=== PATIENT | female | born 1985 | race Caucasian/White ===

== ENCOUNTER 2021-07-11 17:12 | Emergency (ER) | payer BC, OTHER ==
[2021-07-11] MEDS ORDERED: ONDANSETRON 4 MG/2 ML VIAL ONE (17:25)
[2021-07-11] MEDS ORDERED: MECLIZINE HCL 12.5 MG TAB ONE (17:27)
[2021-07-11 17:35] LABS: Absolute Lymphocytes (CBC) 1.6 K/uL (0.7-4.9); Hematocrit 39.1 % (36.0-45.0); Lymphocytes % 19.5 % (15.3-44.8); MPV 7.9 fL (7.6-11.3); RBC Red Blood Cell Count 4.95 M/uL (3.86-4.86)
--- NOTE | 2021-07-11 17:52 | RAD REPORT ---
EXAM DESCRIPTION: CT - Head Brain Wo Cont - 07/11/2021 5:33 pm CLINICAL HISTORY: DIZZINESS COMPARISON: No comparisons TECHNIQUE: All CT scans are performed using dose optimization technique as appropriate and may inclu de automated exposure control or mA/KV adjustment according to patient size. FINDINGS: No intracranial hemorrhage, hydrocephalus or extra-axial fluid collection.No areas of brai n edema or evidence of midline shift. The paranasal sinuses and mastoids are clear. The calvarium is intact. IMPRESSION: No acute intracranial abnormality.
[2021-07-11 17:54] LABS: Potassium 3.6 mmol/L (3.5-5.1)
[2021-07-11 18:33] LABS: Urine Blood 2+ (Negative); Urine Glucose Negative (Negative); Urine Protein Negative (Negative); Urine pH 5.5 (5.0-7.0)
--- NOTE | 2021-07-11 18:36 | RAD REPORT ---
EXAM DESCRIPTION: MRI - Brain Wo Cont - 07/11/2021 6:19 pm CLINICAL HISTORY: DIZZINESS COMPARISON: No comparisons TECHNIQUE: Sagittal T1-weighted images were obtained along with PD/heavily T2-weighted and T2-FLAIR images. Axial DWI and ADC mapping sequences were also obtained along with coronal heavily T2-weighted images were obtained. FINDINGS: No intracranial hemorrhage, mass or acute infarction. There is no edema or shift of midlin e structures. No extra-axial fluid collections. Signal voids are seen as a normal finding in the devonte r intracranial vessels. No significant white matter disease. Trace right mastoid fluid. IMPRESSION: No acute intracranial abnormality. No acute infarct. Small right mastoid effusion .
--- NOTE | 2021-07-11 19:12 | ER ---
Nurse's Notes [facility] Name: Kezia Myers Age: 35 yrs Sex: Female : 1985 Arrival Date: 07/11/2021 Time: 17:13 Bed 18 Private MD: Diagnosis: Other peripheral vertigo Presentation: 07/11 17:14 Chief complaint: Patient states: I was in a meeting today at work. I was sitting down ld1 and then I stood up, thought my leg was asleep. I was so dizzy I swayed into the wall. Pt states, "At this current moment I feel fine, no dizziness. But I feel very tired.". Coronavirus screen: At this time, the client does not indicate any symptoms associated with coronavirus-19. Ebola Screen: No symptoms or risks identified at this time. Initial Sepsis Screen: Does the patient meet any 2 criteria? No. Patient's initial sepsis screen is negative. Does the patient have a suspected source of infection? No. Patient's initial sepsis screen is negative. Risk Assessment: Do you want to hurt yourself or someone else? Patient reports no desire to harm self or others. Onset of symptoms was July 11, 2021. 17:14 Method Of Arrival: Wheelchair ld1 17:14 Acuity: ELLEN 3 ld1 Triage Assessment: 17:14 General: Appears in no apparent distress. comfortable, Behavior is calm, cooperative, ld1 appropriate for age. Pain: Denies pain. EENT: No signs and/or symptoms were reported regarding the EENT system. Neuro: Level of Consciousness is awake, alert, obeys commands, Oriented to person, place, time, situation, Appropriate for age. Neuro: Reports dizziness. Cardiovascular: Capillary refill < 3 seconds Patient's skin is warm and dry. Respiratory: Airway is patent Respiratory effort is even, unlabored, Respiratory pattern is regular, symmetrical. GI: Abdomen is flat, non-distended, Reports nausea. : No signs and/or symptoms were reported regarding the genitourinary system. Derm: No signs and/or symptoms reported regarding the dermatologic system. Musculoskeletal: No signs and/or symptoms reported regarding the musculoskeletal system. 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 - Social history:: Smoking status: Patient denies any tobacco usage or history of. Patient/guardian denies using alcohol. Screenin:21 Abuse screen: Denies threats or abuse. Denies injuries from another. Nutritional ld1 screening: No deficits noted. Tuberculosis screening: No symptoms or risk factors identified. Fall Risk None identified. Assessment: 17:19 Reassessment: See triage assessment. ld1 18:49 Neuro: Reports dizziness, since 4:30pm today, associated symptoms of nausea, and eo2 posterior neck pain 1/10; otherwise denies headache, V/D, CP, SOB. 19:24 Reassessment: Patient is alert, oriented x 3, equal unlabored respirations, skin kd3 warm/dry/pink. Patient denies pain at this time. General: Appears in no apparent distress. Vital Signs: 17:14 BP 127 / 76; Pulse 78; Resp 18; Temp 97.7(TE); Pulse Ox 99% on R/A; Height 5 ft. 6 in. ld1 (167.64 cm); Pain 0/10; 17:22 Weight 97.52 kg; Height 5 ft. 4 in. (162.56 cm); ld1 18:51 BP 101 / 60; Pulse 67; Resp 15; Pulse Ox 99% ; Pain 1/10; eo2 17:22 Body Mass Index 36.90 (97.52 kg, 162.56 cm) ld1 ED Course: 17:13 Patient arrived in ED. bd 17:14 Iris Winters, JAMES is Primary Nurse. ld1 17:14 No provider procedures requiring assistance completed. Inserted saline lock: 20 gauge ld1 in left antecubital area, using aseptic technique. Blood collected. 17:14 Arm band placed on right wrist. ld1 17:18 Triage completed. ld1 17:20 Pelon Valdez PA is PHCP. jr8 17:20 Anthony De León MD is Attending Physician. jr8 17:21 Patient has correct armband on for positive identification. Bed in low position. Call ld1 light in reach. Side rails up X2. Pulse ox on. NIBP on. Door closed. Noise minimized. 17:33 CT Head Brain wo Cont In Process Unspecified. EDMS 18:19 MRI - Brain Wo Cont In Process Unspecified. EDMS 18:53 COVID-19 SARS RT PCR (Document "Date of Onset" if Symptomatic) Sent. eo2 19:07 Report given to Lindsay RAMIREZ. eo2 19:11 Chi Newman MD is Referral Physician. rn 19:25 IV discontinued, intact, bleeding controlled, No redness/swelling at site. Pressure kd3 dressing applied. Administered Medications: 17:29 Drug: Meclizine 50 mg Route: PO; ld1 17:29 Follow up: Response: No adverse reaction ld1 17:29 Drug: Zofran (Ondansetron) 4 mg Route: IVP; Site: left antecubital; ld1 17:29 Follow up: Response: No adverse reaction ld1 Outcome: 19:11 Discharge ordered by . rn 19:25 Discharged to home ambulatory. kd3 19:25 Condition: stable 19:25 Discharge instructions given to patient. 19:26 Patient left the ED. kd3 Signatures: Dispatcher [employer] EDMS Sydnee Zhang Roman, MD MD rn Roszak, Josh, PA PA jr8 Iris Winters RN RN ld1 Lindsay Gar RN RN kd3 Palmira Ring RN RN eo2 Corrections: (The following items were deleted from the chart) 17:21 17:19 PSHx: None; ld1 ld1
--- NOTE | 2021-07-11 19:12 | EDPHYS ---
Physician Documentation [facility] Name: Kezia Myers Age: 35 yrs Sex: Female : 1985 Arrival Date: 07/11/2021 Time: 17:13 Bed 18 Private MD: ED Physician Anthony De León HPI: 07/11 17:47 This 35 yrs old Female presents to ER via Wheelchair with complaints of dizziness. jr8 17:47 Severity of symptoms: At their worst the symptoms were moderate in the emergency jr8 department the symptoms are unchanged. The patient has not experienced similar symptoms in the past. The patient has not recently seen a physician. This is a 35-year-old female who presented to the emergency room with complaints of dizziness and unsteady gait. Patient stated that she has had a headache for the past 3 days which finally went away today. While at work had been doing well until she got up and felt the room moving around her. Since then she has been unsteady on her feet. Mild nausea with change in position when the dizziness occurs. 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 - Social history:: Smoking status: Patient denies any tobacco usage or history of. Patient/guardian denies using alcohol. ROS: 17:47 Eyes: Negative for injury, pain, redness, and discharge, ENT: Negative for injury, jr8 pain, and discharge, Neck: Negative for injury, pain, and swelling, Cardiovascular: Negative for chest pain, palpitations, and edema, Respiratory: Negative for shortness of breath, cough, wheezing, and pleuritic chest pain, Abdomen/GI: Negative for abdominal pain, nausea, vomiting, diarrhea, and constipation, Back: Negative for injury and pain, MS/Extremity: Negative for injury and deformity, Skin: Negative for injury, rash, and discoloration. 17:47 Neuro: Positive for dizziness, gait disturbance, headache. Exam: 17:47 Constitutional: This is a well developed, well nourished patient who is awake, alert, jr8 and in no acute distress. Eyes: Pupils equal round and reactive to light, extra-ocular motions intact. Lids and lashes normal. Conjunctiva and sclera are non-icteric and not injected. Cornea within normal limits. Periorbital areas with no swelling, redness, or edema. ENT: Nares patent. No nasal discharge, no septal abnormalities noted. Tympanic membranes are normal and external auditory canals are clear. Oropharynx with no redness, swelling, or masses, exudates, or evidence of obstruction, uvula midline. Mucous membranes moist. Neck: Trachea midline, no thyromegaly or masses palpated, and no cervical lymphadenopathy. Supple, full range of motion without nuchal rigidity, or vertebral point tenderness. No Meningismus. Cardiovascular: Regular rate and rhythm with a normal S1 and S2. No gallops, murmurs, or rubs. Normal PMI, no JVD. No pulse deficits. Respiratory: Lungs have equal breath sounds bilaterally, clear to auscultation and percussion. No rales, rhonchi or wheezes noted. No increased work of breathing, no retractions or nasal flaring. Abdomen/GI: Soft, non-tender, with normal bowel sounds. No distension or tympany. No guarding or rebound. No evidence of tenderness throughout. Skin: Warm, dry with normal turgor. Normal color with no rashes, no lesions, and no evidence of cellulitis. MS/ Extremity: Pulses equal, no cyanosis. Neurovascular intact. Full, normal range of motion. Neuro: Awake and alert, GCS 15, oriented to person, place, time, and situation. Cranial nerves II-XII grossly intact. Motor strength 5/5 in all extremities. Sensory grossly intact. Cerebellar exam normal. Mild ataxia present Vital Signs: 17:14 BP 127 / 76; Pulse 78; Resp 18; Temp 97.7(TE); Pulse Ox 99% on R/A; Height 5 ft. 6 in. ld1 (167.64 cm); Pain 0/10; 17:22 Weight 97.52 kg; Height 5 ft. 4 in. (162.56 cm); ld1 18:51 BP 101 / 60; Pulse 67; Resp 15; Pulse Ox 99% ; Pain 1/10; eo2 17:22 Body Mass Index 36.90 (97.52 kg, 162.56 cm) ld1 MDM: 17:20 Patient medically screened. [facility] 07/11 17:21 Order name: CBC with Diff; Complete Time: 17:47 jr8 07/11 17:21 Order name: Basic Metabolic Panel; Complete Time: 17:54 8 07/11 17:21 Order name: CT Head Brain wo Cont; Complete Time: 17:54 8 07/11 17:55 Order name: COVID-19 SARS RT PCR (Document "Date of Onset" if Symptomatic) ss 07/11 18:33 Order name: Urine Dipstick-Ancillary; Complete Time: 19:11 EDMS 07/11 18:35 Order name: Urine --Ancillary (enter results); Complete Time: 19:11 bd 07/11 17:21 Order name: Urine Dipstick-Ancillary (obtain specimen); Complete Time: 18:53 8 07/11 17:21 Order name: Urine Test (obtain specimen); Complete Time: 18:53 [facility] 07/11 17:47 Order name: MRI - Brain Wo Cont; Complete Time: 19:11 jr Administered Medications: 17:29 Drug: Meclizine 50 mg Route: PO; ld1 17:29 Follow up: Response: No adverse reaction ld1 17:29 Drug: Zofran (Ondansetron) 4 mg Route: IVP; Site: left antecubital; ld1 17:29 Follow up: Response: No adverse reaction ld1 Disposition: 19:11 Co-signature as Attending Physician, Anthony De León MD. 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 Day 2, 3, 4 , 5 take one (1) tablet once daily.; 6 tablet; Refills: 0, Product Selection Permitted - Medrol (Maximino) 4 mg Oral Tablets, Dose Pack - take 1 tablet by ORAL route as directed - follow package instructions; 1 rn packet; Refills: 0, Product Selection Permitted Signatures: Dispatcher [employer] Anthony Mora MD MD rn Roszak, Josh, PA PA jr8 Iris Winters RN RN ld1 Corrections: (The following items were deleted from the chart) 17:21 17:19 PSHx: None; ld1 ld1
[2021-07-11 20:01] VITALS: TEMP 97.7; O2SAT 99
[2021-07-11 20:07] VITALS: BP 101/60
== END 2021-07-11 19:26 | disposition home or self-care (01) ==
LOC: ER 17:12
DX: H81.399 Other peripheral vertigo, unspecified ear (principal); Z88.0 Allergy status to penicillin; Z20.822 Contact with and (suspected) exposure to COVID-19
CPT/HCPCS: 85025; 80048; 36415; 81025; 81003; 70450; 70551; U0003; J2405; J8597

== ENCOUNTER 2025-03-29 20:59 | Emergency (ER) | payer BC ==
[2025-03-29] MEDS ORDERED: NA CHLORIDE 0.9% 1,000 ML ONE (21:05)
[2025-03-29] MEDS ORDERED: ADENOSINE 6 MG/ 2ML VIAL IV ONE (21:05)
[2025-03-29] MEDS ORDERED: METOPROLOL TARTRATE 5 MG/5 ML INJ IV ONE (21:12)
[2025-03-29 21:19] LABS: Absolute Lymphocytes (CBC) 3.2 K/uL (0.7-4.9); Hematocrit 42.7 % (36.0-45.0); Hemoglobin 13.8 g/dL (12.0-15.0); MCH 25.6 pg (27.0-35.0); MCHC 32.4 g/dL (32.0-36.0); MCV 79.2 fL (80-100); MPV 8.4 fL (7.6-11.3); Nucleated RBC Absolute Count 0.0 (0-0); Nucleated Red Blood Cells % 0.2 % (0-0); RBC Red Blood Cell Count 5.39 M/uL (3.86-4.86); White Blood Count 10.80 thou/uL (4.3-10.9)
[2025-03-29 21:40] LABS: Anion Gap 7.9 mEq/L (5.0-15.0); BUN Blood Urea Nitrogen 15 mg/dL (7-18); Glucose Level 103 mg/dL (74-106); Potassium 3.9 mEq/L (3.5-5.1); Troponin High Sensitivity < 3.0 pg/mL (<58.9)
--- NOTE | 2025-03-29 21:49 | RAD REPORT ---
EXAMINATION: ONE VIEW CHEST XR CLINICAL INDICATION: Female, 39 years old.,PALPITATIONS TECHNIQUE: Frontal chest projection is submitted. Examination is limited by patient positioning and t echnique. COMPARISON: No prior exam. FINDINGS: The lungs are well inflated and clear. Overlying defibrillator pads somewhat limited evaluation. No p neumothorax or sizable effusion. The heart is normal in size. Mediastinal contours are unremarkable. IMPRESSION: No acute intrathoracic abnormalities.
--- NOTE | 2025-03-29 21:57 | EDPHYS ---
Physician Documentation [facility] Name: Kezia Myers Age: 39 yrs Sex: Female : 1985 Arrival Date: 03/29/2025 Time: 20:59 Bed 19 Private MD: ED Physician Aleksandar Hammer HPI: 03/29 21:28 This 39 yrs old Female presents to ER via Ambulatory with complaints of High heart rate.sp3 21:28 39-year-old female with no significant past medical history presents with palpitations sp3 and tachycardia. 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 She states symptoms started approximate 30 minutes prior to arrival. She denies any significant chest pain, shortness of breath, abdominal pain, nausea, vomit, diarrhea, headache, syncope, near syncope, prior episodes, drugs or alcohol, increased use of caffeine, or any other substance or medication.. Historical: - Allergies: 21:18 PENICILLINS; jb4 - PSHx: 21:18 gastric sleeve; hernia repair; jb4 - Immunization history:: Adult Immunizations up to date. - Infectious Disease History:: Denies. - Social history:: Smoking status: Patient denies any tobacco usage or history of. ROS: 21:29 Constitutional: Negative for fever, chills, and weight loss, Eyes: Negative for injury, sp3 pain, redness, and discharge, ENT: Negative for injury, pain, and discharge, Neck: Negative for injury, pain, and swelling, Respiratory: Negative for shortness of breath, cough, wheezing, and pleuritic chest pain, Abdomen/GI: Negative for abdominal pain, nausea, vomiting, diarrhea, and constipation, Back: Negative for injury and pain, MS/Extremity: Negative for injury and deformity, Skin: Negative for injury, rash, and discoloration, Neuro: Negative for headache, weakness, numbness, tingling, and seizure, Psych: Negative for depression, anxiety, suicide ideation, homicidal ideation, and hallucinations, Allergy/Immunology: Negative for hives, rash, and allergies, Endocrine: Negative for neck swelling, polydipsia, polyuria, polyphagia, and marked weight changes, 21:29 All other systems are negative, Exam: 21:29 Constitutional: This is a well developed, well nourished patient who is awake, alert, sp3 and in no acute distress. Head/Face: Normocephalic, atraumatic. Eyes: Pupils equal round and reactive to light, extra-ocular motions intact. Lids and lashes normal. Conjunctiva and sclera are non-icteric and not injected. Cornea within normal limits. Periorbital areas with no swelling, redness, or edema. ENT: Nares patent. No nasal discharge, no septal abnormalities noted. External auditory canals are clear. Oropharynx with no redness, swelling, or masses, exudates, or evidence of obstruction, uvula midline. Mucous membranes moist. Neck: Trachea midline, no thyromegaly or masses palpated, and no cervical lymphadenopathy. Supple, full range of motion without nuchal rigidity, or vertebral point tenderness. No Meningismus. Chest/axilla: Normal chest wall appearance and motion. Nontender with no deformity. No lesions are appreciated. Respiratory: Lungs have equal breath sounds bilaterally, clear to auscultation and percussion. No rales, rhonchi or wheezes noted. No increased work of breathing, no retractions or nasal flaring. Abdomen/GI: Soft, non-tender, with normal bowel sounds. No distension or tympany. No guarding or rebound. No evidence of tenderness throughout. Back: No spinal tenderness. No costovertebral tenderness. Full range of motion. Skin: Warm, dry with normal turgor. Normal color with no rashes, no lesions, and no evidence of cellulitis. MS/ Extremity: Pulses equal, no cyanosis. Neurovascular intact. Full, normal range of motion. Neuro: Awake and alert, GCS 15, oriented to person, place, time, and situation. Cranial nerves II-XII grossly intact. Motor strength 5/5 in all extremities. Sensory grossly intact. Cerebellar exam normal. Normal gait. Psych: Awake, alert, with orientation to person, place and time. Behavior, mood, and affect are within normal limits. 21:29 Cardiovascular: Rate: tachycardic, Patient in SVT on court recording monitor at 200 bpm, 21:29 ECG was reviewed by the Attending Physician. EKG taken after medications demonstrates normal sinus rhythm at 85 bpm with normal intervals, normal QRS, normal axis and normal axis ST segments without evidence of acute ischemia. Vital Signs: 21:17 BP 121 / 83; Pulse 205; Resp 20; Pulse Ox 100% ; jb4 21:32 BP 113 / 83; Pulse 95; Resp 14; Pulse Ox 100% on R/A; jb4 22:27 BP 101 / 73; Pulse 84; Resp 16; Pulse Ox 100% on R/A; jb4 MDM: 21:02 Medical Screening Exam initiated kb 21:30 Data reviewed: vital signs, nurses notes, lab test result(s), EKG, radiologic studies. sp3 ED course: 39-year-old female with tachycardia. Differential diagnosis includes supraventricular tachycardia with either idiopathic versus atrial fibrillation versus atrial flutter versus other reentrant rhythm morphology. Rhythm is monomorphic on the monitor. Patient received emergent adenosine 12 mg which then converted patient to sinus tachycardia with subsequent 5 mg of Lopressor bringing her into the 80s NSR. Standard workup pending. If workup negative we will safely discharge home to cardiology follow-up.. 21:56 ED course: Full workup negative. Will safely discharge patient home to cardiology sp3 follow-up. 03/29 21:07 Order name: Basic Metabolic Panel; Complete Time: 21:46 kb 03/29 21:07 Order name: CBC with Diff; Complete Time: 21:46 kb 03/29 21:07 Order name: Troponin HS; Complete Time: 21:46 kb 03/29 21:07 Order name: XRAY Chest (1 view); Complete Time: 21:56 kb 03/29 21:07 Order name: Cardiac monitoring; Complete Time: 21:08 kb 03/29 21:07 Order name: EKG - Nurse/Tech; Complete Time: 21:26 kb 03/29 21:07 Order name: IV Saline Lock; Complete Time: 21:08 kb 03/29 21:07 Order name: Labs collected and sent; Complete Time: 21:26 kb 03/29 21:07 Order name: O2 Per Protocol; Complete Time: 21:22 kb 03/29 21:07 Order name: O2 Sat Monitoring; Complete Time: 21:22 kb Administered Medications: 21:15 Drug: Adenocard IVP 12 mg IVP once Route: IVP; Site: right forearm; jb4 21:22 Drug: Metoprolol IVP 5 mg IVP once; Hold for SBP <100 or HR <60. Route: IVP; Site: [facility] right forearm; 21:32 Drug: NS 0.9% IV 1000 ml IV at 1000 ml once; to be given as a bolus over 60 minutes jb4 Route: IV; Rate: 1000 ml; Site: right forearm; Disposition Summary: 03/29/25 21:57 Discharge Ordered Notes: Location: Home sp3 Condition: Stable sp3 Diagnosis - Supraventricular tachycardia, with conversion in ED sp3 Followup: sp3 - With: Dameon Barahona MD - When: Upon discharge from the Emergency Department - Reason: Recheck today's complaints Discharge Instructions: - Discharge Summary Sheet sp3 - Supraventricular Tachycardia, Adult sp3 Forms: - Medication Reconciliation Form sp3 - Antibiotic Education sp3 - Prescription Opioid Use sp3 - Patient Portal Instructions sp3 - Leadership Thank You Letter sp3 Signatures: Dispatcher [employer] EDMS Inna Panda, PATRICIA-Kim HEADP-Pernell Suárez RN RN jb4 Aleksandar Hammer MD MD sp3
--- NOTE | 2025-03-29 21:57 | ER ---
Nurse's Notes [facility] Name: Kezia Myers Age: 39 yrs Sex: Female : 1985 Arrival Date: 03/29/2025 Time: 20:59 Bed 19 Private MD: Diagnosis: Supraventricular tachycardia, with conversion in ED Presentation: 03/29 21:17 Chief complaint: Patient states: I think I am in SVT. Coronavirus screen: At this time, jb4 the client does not indicate any symptoms associated with coronavirus-19. Ebola Screen: No symptoms or risks identified at this time. Initial Sepsis Screen: Does the patient meet any 2 criteria? HR > 90 bpm. Yes Does the patient have a suspected source of infection? No. Patient's initial sepsis screen is negative. Risk Assessment: Do you want to hurt yourself or someone else?. Onset of symptoms was March 29, 2025. Transition of care: patient was not received from another setting of care. 21:17 Method Of Arrival: Ambulatory jb4 21:17 Acuity: ELLEN 2 jb4 Historical: - Allergies: 21:18 PENICILLINS; jb4 - PSHx: 21:18 gastric sleeve; hernia repair; jb4 - Immunization history:: Adult Immunizations up to date. - Infectious Disease History:: Denies. - Social history:: Smoking status: Patient denies any tobacco usage or history of. Screenin:19 [facility] ED Fall Risk Assessment (Adult) History of falling in the last 3 months, jb4 including since admission No falls in past 3 months (0 pts) Confusion or Disorientation No (0 pts) Intoxicated or Sedated No (0 pts) Impaired Gait No (0 pts) Mobility Assist Device Used No (0 pt) Altered Elimination No (0 pt) Score/Fall Risk Level 0 - 2 = Low Risk Oriented to surroundings, Maintained a safe environment. Abuse screen: Denies threats or abuse. Nutritional screening: No deficits noted. Tuberculosis screening: No symptoms or risk factors identified. Assessment: 21:19 General: Appears in no apparent distress. comfortable, Behavior is calm, cooperative, jb4 appropriate for age. Pain: Denies pain. Neuro: Level of Consciousness is awake, alert, obeys commands, Oriented to person, place, time, situation. Cardiovascular: Patient's skin is warm and dry. Respiratory: Airway is patent Respiratory effort is even, unlabored, Respiratory pattern is regular, symmetrical. Derm: Skin is intact, Skin is pink, warm \T\ dry. Musculoskeletal: Circulation, motion, and sensation intact. Range of motion: intact in all extremities. 22:27 Reassessment: Patient appears in no apparent distress at this time. Patient and/or jb4 family updated on plan of care and expected duration. Pain level reassessed. Patient is alert, oriented x 3, equal unlabored respirations, skin warm/dry/pink. Vital Signs: 21:17 BP 121 / 83; Pulse 205; Resp 20; Pulse Ox 100% ; jb4 21:32 BP 113 / 83; Pulse 95; Resp 14; Pulse Ox 100% on R/A; jb4 22:27 BP 101 / 73; Pulse 84; Resp 16; Pulse Ox 100% on R/A; jb4 ED Course: 21:00 Patient arrived in ED. im 21:01 Aleksandar Hammer MD is Attending Physician. sp3 21:02 [facility] kb 21:17 Pernell Anguiano, RN is Primary Nurse. jb4 21:18 Triage completed. jb4 21:18 Arm band placed on right wrist. jb4 21:19 Patient has correct armband on for positive identification. Bed in low position. Call jb4 light in reach. Side rails up X 1. Provided Education on: plan of care. 21:19 Inserted saline lock: 22 gauge in right forearm, using aseptic technique. Blood jb4 collected. 21:26 EKG done, by quality control technician. reviewed by Aleksandar Hammer MD. ts3 21:29 XRAY Chest (1 view) In Process Unspecified. EDMS 21:57 Dameon Barahona MD is Referral Physician. sp3 22:27 No provider procedures requiring assistance completed. IV discontinued, intact, jb4 bleeding controlled, No redness/swelling at site. Pressure dressing applied. Administered Medications: 21:15 Drug: Adenocard IVP 12 mg IVP once Route: IVP; Site: right forearm; jb4 21:22 Drug: Metoprolol IVP 5 mg IVP once; Hold for SBP <100 or HR <60. Route: IVP; Site: jb4 right forearm; 21:32 Drug: NS 0.9% IV 1000 ml IV at 1000 ml once; to be given as a bolus over 60 minutes jb4 Route: IV; Rate: 1000 ml; Site: right forearm; Medication: 21:19 VIS not applicable for this client. jb4 Outcome: 21:57 Discharge ordered by . zachary 22:27 Discharged to home ambulatory, jb4 22:27 Condition: stable 22:27 Discharge instructions given to patient, Instructed on discharge instructions, follow up and referral plans. Demonstrated understanding of instructions, follow-up care, 22:30 Patient left the ED. jb4 Signatures: Dispatcher [employer] EDMS Inna Panda, SENIOR GEOLOGIST-C SENIOR GEOLOGIST-Pernell Suárez, RN RN jb4 Aleksandar Hammer MD MD sp3 Mai Diehl Taisha ts3
[2025-03-29 23:05] VITALS: O2SAT 100
[2025-03-29 23:10] VITALS: BP 101/73
== END 2025-03-29 22:30 | disposition home or self-care (01) ==
LOC: ER 20:59
DX: I47.10 Supraventricular tachycardia, unspecified (principal); Z88.0 Allergy status to penicillin
CPT/HCPCS: 93005; 85025; 80048; 36415; 84484; 71045; 96375; 96374; 99285; J0153; J7030